=== PATIENT | female | born 1950 | race African-American/Black ===

== ENCOUNTER → 2017-07-19 | Outpatient (CLI) | payer OTHER ==
[~2017-07-19] VITALS: Ht 170.2 cm; Wt 90.7 kg
[~2017-07-19] MED LIST: AVAPRO 150 MG150 M1 PO; DIOVAN40 MG PO; METFORMIN HCL500 M2 PO; PRAVACHOL40 MG PO; TOPROL XL100 MG PO; VERAPAMIL ER120 M1 PO
--- NOTE | ~2017-07-19 | HPC ---
Formerly [facility] [address] [address] PAIN MANAGEMENT CONSULTATION Name: JOYCE FIELDS Room #: REG ROQUE Brayan.#: [id number] Admission: 07/19/17 Attend Phys: Otoniel Donnelly DO Discharge: Date of : 48 Report #: [id number] THIS REPORT FOR: //name// CC: AYANA Donnelly HISTORY OF PRESENT ILLNESS: The patient is a 67-year-old female seen in consultation at the request of Dr. Hein for evaluation of pain, low back, right hip and foot. The patient notes about 1 year ago she was bending up in the shower to wash her foot, developed acute onset of pain, low back, right hip, buttock, radiating down to the foot with paresthesia in the foot and leg. She notes pain has been problematic since that time. She denies saddle anesthesia, denies bowel or bladder continence changes, does have paresthesia in the right foot. Rates pain anywhere from 4-10 on a VAS. She has done physical therapy for 3 months with minimal efficacy. She describes constant, shooting, sharp, stabbing pain. Notes it seems to be exacerbated with sitting or stretching, gets some relief when she is recumbent. REVIEW OF SYSTEMS: Complete review of systems attached to chart and was gone over with the patient. She is , does not smoke or drink alcohol to excess. Has non-insulin dependent diabetes, treated with metformin, most recent hemoglobin A1c was 7.1. Dyslipidemia for which she takes pravastatin. Hypertension for which she takes irbesartan, verapamil, metoprolol and valsartan. Had a cholecystectomy and hysterectomy. 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 Pain impact score is fairly nominal. PHYSICAL EXAMINATION: VITAL SIGNS: Reveals a 5 feet 7 inches, 200-pound female, BMI is 31.3 kilograms per meter squared. Blood pressure is elevated at 184/92, pulse is 84, respirations 16. HEENT: Cranial nerves 2-12 are grossly intact. Pupils equal, reactive to light and accommodation. Extraocular muscles are intact. GENERAL: She is alert and oriented to person, place and time, judged to be a reasonable historian. NECK: Cervical range of motion is full. Thyroid is unremarkable. HEART: Regular, rhythmical without murmur. LUNGS: Clear to auscultation. ABDOMEN: Shows a modestly endomorphic build. NEUROLOGIC: Upper extremity strength is preserved. Lumbar flexion is limited to 80 degrees. Gait is minimally antalgic, though she is unable to walk on her right toes. Lower extremity strength is objectively diminished to right plantarflexion. Positive straight leg raise at 30 degrees on the right. Patellar and Achilles reflexes are generally preserved. SKIN: Integument is intact. Formerly [facility] [address] [place] [address] PAIN MANAGEMENT CONSULTATION Name: JOYCE FIELDS Room #: REG ROQUE Dykes#: [id number] Admission: 07/19/17 Attend Phys: Otoniel Donnelly DO Discharge: Date of : 48 Report #: [id number] DIAGNOSTIC STUDIES: There are no recent diagnostic studies available for evaluation at this time. ASSESSMENT: Symptomatic lumbar radiculopathy by clinical exam and history, in a patient in whom nonsteroidal anti-inflammatory medications are contraindicated because of hypertension and non-insulin dependent diabetes. RECOMMENDATION: We discussed therapeutic options today. We have ultimately elected to proceed with lumbar epidural injection under fluoroscopy at L4-L5, right of midline, follow up in 4 weeks to reevaluate. Thank you for allowing me to participate in this patient's care. I will keep you abreast of her progress. PROCEDURE: Lumbar epidural steroid injection. PROCEDURE NOTE: After both written and informed consent to include risk of spinal cord damage, increased pain, weakness and dural puncture, the patient was taken to the fluoroscopy suite, placed in the prone position. After sterile prep and drape, a skin wheal with lidocaine was raised. A 22-gauge epidural Tuohy needle was inserted in the midline at L4-L5 with good loss to resistance. Negative aspiration for cerebrospinal fluid or blood was noted. Then 1 mL of Omnipaque under biplanar fluoroscopy showed good spread within the epidural space. This was followed with 80 mg of triamcinolone plus 1 mL of 1.5% preservative-free Xylocaine, 0.5 mL Xylocaine was then injected to flush the needle; it was removed. The patient was monitored for an appropriate period of time and discharged in good and stable condition. <ELECTRONICALLY SIGNED> By: Otoniel Donnelly DO 07/20/17 [id number] Otoniel Donnelly DO /nt
[2017-07-19 14:10] VITALS: BP 184/92
== END | disposition home or self-care (01) ==
LOC: PAIN 10:16
DX: M54.16 Radiculopathy, lumbar region (principal); I10 Essential (primary) hypertension; E11.9 Type 2 diabetes mellitus without complications; Z79.84 Long term (current) use of oral hypoglycemic drugs; Z68.31 Body mass index [BMI] 31.0-31.9, adult; E78.5 Hyperlipidemia, unspecified; Z79.899 Other long term (current) drug therapy; Z90.49 Acquired absence of other specified parts of digestive tract; Z90.710 Acquired absence of both cervix and uterus